=== PATIENT | female | born 1975 | race African-American/Black ===

== ENCOUNTER 2020-03-13 13:03 | Emergency (ER) | payer OTHER ==
[2020-03-13] MEDS ORDERED: Aspirin Chewable 81 MG TAB ONE (14:14)
--- NOTE | 2020-03-13 14:28 | RAD ---
PORTABLE CHEST: DATE: 03/13/2020. PROVIDED CLINICAL HISTORY: Back pain. FINDINGS: Cardiac silhouette appears enlarged, which may be at least partially on the basis of portable techniq ue. No focal consolidation, pleural fluid, or pneumothorax apparent. IMPRESSION: No evidence for an acute cardiopulmonary process. POS: [facility]
[2020-03-13 14:29] LABS: #Basophils 0.1 thou/uL (0.0-0.2); #Eosinphils 0.1 thou/uL (0.0-0.7); #Monocytes 0.6 thou/uL (0.11-0.59); #Neutrophils 4.8 thou/uL (1.40-6.50); %Basophils 1.4 % (0.0-1.0); %Eosinophils 0.9 % (0.0-10.0); %Monocytes 6.8 % (0.0-10.0); %Neutrophils 55.9 % (42.0-75.0); Hemoglobin 12.9 g/dL (12.0-16.0); Mean Corpuscular HGB CONC 34.1 g/dL (32.0-36.0); Mean Corpuscular Hemoglobin 31.5 pg (27.0-31.0); Mean Corpuscular Volume 92.4 fL (78.0-98.0); Mean Platelet Volume 8.6 fL (7.4-10.4); Platelet Count 268 thou/uL (130-400); RBC Distribution Width 11.8 % (11.5-14.5); Red Blood Cell (RBC) Count 4.09 mill/uL (4.20-5.40); White Blood Cell (WBC) Count 8.5 thou/uL (4.8-10.8)
[2020-03-13 14:52] LABS: ALT (SGPT) 18 U/L (8-55); AST (SGOT) 25 U/L (5-34); Albumin 4.1 g/dL (3.5-5.0); Alkaline Phosphatase 81 U/L (40-110); Anion Gap 16 mmol/L (10-20); BUN (Urea Nitrogen) 12 mg/dL (7.0-18.7); Bilirubin, Total 0.5 mg/dL (0.2-1.2); Calc. Creatinine Clearance 0 mL/min (70-130); Calcium 9.6 mg/dL (7.8-10.44); Carbon Dioxide 20 mmol/L (22-29); Chloride 104 mmol/L (98-107); Estimated GFR-MDRD 83; Globulin 3.7 g/dL (2.4-3.5); Glucose 109 mg/dL (70-105); Potassium 4.6 mmol/L (3.5-5.1); Protein, Total 7.8 g/dL (6.0-8.3); Sodium 135 mmol/L (136-145)
--- NOTE | 2020-03-14 15:19 | EKG ---
Test Reason : Blood Pressure : / mmHG Vent. Rate : 064 BPM Atrial Rate : 064 BPM P-R Int : 134 ms QRS Dur : 092 ms QT Int : 408 ms P-R-T Axes : 016 010 -43 degrees QTc Int : 420 ms Sinus rhythm with Premature atrial complexes T wave abnormality, consider inferior ischemia T wave abnormality, consider anterolateral ischemia Abnormal ECG Confirmed by STEPHY MACIAS ([id number]), editorial intern MITCHELL SALMON ([id number]) on 03/14/2020 3:18:56 PM Referred By: Confirmed By:STEPHY Villanueva
== END 2020-03-13 18:25 | disposition home or self-care (01) ==
LOC: ERS 13:03
DX: R07.89 Other chest pain (principal); M54.6 Pain in thoracic spine; I11.0 Hypertensive heart disease with heart failure; I50.9 Heart failure, unspecified; Z79.82 Long term (current) use of aspirin; Z79.899 Other long term (current) drug therapy
CPT/HCPCS: 36415; 71045; 80053; 84484; 85025; 93005